=== PATIENT | female | born 1975 | race African-American/Black ===

== ENCOUNTER 2020-05-10 09:33 | Emergency (ER) | payer BC ==
[2020-05-10] MEDS ORDERED: Tobramycin Sulfate 0.3% Ophth Susp 5 ml Bottle ONE (09:56)
== END 2020-05-10 10:06 | disposition home or self-care (01) ==
LOC: BURERS 09:33
DX: H10.9 Unspecified conjunctivitis (principal)
CPT/HCPCS: 99283